=== PATIENT | male | born 1945 | race Caucasian/White ===

== ENCOUNTER 2020-10-01 17:39 | Inpatient (IN) | payer MEDICARE, OTHER ==
[~2020-10-01] VITALS: Ht 172.7 cm; Wt 56.7 kg
[2020-10-01 18:12] LABS: Hematocrit 21.2 % (37.0-53.0); Hemoglobin 7.3 g/dL (13.5-17.5); Mean Corpuscular HGB 30.2 pg (26.0-34.0); Mean Corpuscular HGB Conc 34.4 g/dL (31.5-36.5); Mean Corpuscular Volume 88 fL (80-100); Mean Platelet Volume 10.4 fL (9.1-12.4); NRBC ABSOLUTE 0.02 K/mm3 (0.00-0.02); NRBC Auto 0.4 /100 WBC (0.0-0.2); Platelet Count 160 K/mm3 (150-400); RDW Coefficient Variation 28.8 % (11.7-14.2); RDW Standard Deviation 86.3 fL (35.1-46.3); Red Blood Cell Count 2.42 M/mm3 (4.30-5.90)
[2020-10-01 18:35] LABS: BAND PERCENT MAN 1 % (0-8); BASOPHILS PERCENT MAN 0 % (0-2); EOSINOPHILS PERCENT MAN 0 % (0-6); LYMPHOCYTES % ATYPICAL MANUAL 2 % (0-0); LYMPHOCYTES ABSOLUTE MAN 0.91 K/mm3 (0.84-5.20); LYMPHOCYTES PERCENT MAN 16 % (21-46); MONOCYTES ABSOLUTE MAN 0.15 K/mm3 (0.16-1.47); MONOCYTES PERCENT MAN 3 % (4-13); NEUTROPHILS ABSOLUTE MAN 4.02 K/mm3 (1.96-9.15); SEG NEUTROPHILS PERCENT MAN 78 % (41-73); TOTAL CELLS COUNTED 100
[2020-10-01 19:14] LABS: Source, Urine Catheter
[2020-10-01 19:19] LABS: Albumin, Blood 3.2 g/dL (3.4-5.0); Albumin/Globulin Ratio 0.9 (0.8-1.8); Bilirubin, Total 1.4 mg/dL (0.1-1.0); Bun/Creatinine Ratio 15.4 (12.0-20.0); Creatinine, Blood 1.3 mg/dL (0.60-1.20); Globulin, Blood 3.5 g/dL (2.2-4.0); Potassium, Blood 2.8 mmol/L (3.5-5.5); Total Protein, Blood 6.7 g/dL (6.4-8.2)
[2020-10-01 19:22] LABS: Appearance, Urine Clear (Clear); Blood, Urine 5+ (Neg); Color, Urine Amber (P-Yellow); Glucose Qualitative, Urine Neg (Neg); Ketones, Urine 1+ (Neg); Leukocyte Esterase, Urine 1+ (Neg); Nitrite, Urine Neg (Neg); Protein, Urine 3+ (Neg); Specific Gravity, Urine 1.015 (1.003-1.022); Urobilinogen, Urine 2+ (Normal)
[2020-10-01 19:50] LABS: Bilirubin, Urine 1+ (Neg)
[2020-10-01 19:56] LABS: Bacteria Mod /hpf; Mucus Light (0-Heavy); Squamous Epithelial Cells Rare /hpf (Few)
[2020-10-01 19:57] LABS: Amorphous Light (0-Heavy); Granular Casts 0-2 /lpf (0); Hyaline Casts 0-2 /lpf (0-2)
[2020-10-01 20:46] LABS: U Amphetamine Screen Not Detected; U Barbituate Screen Not Detected; U Benzodiazapine Screen Not Detected; U Buprenorphine Screen Not Detected; U Cannabinoids Screen Not Detected; U Cocaine Screen Not Detected; U Methadone Screen Not Detected; U Methamphetamine Screen Not Detected; U Opiates Screen Not Detected; U Oxycodone Screen Not Detected; U Phencyclidine Screen Not Detected; U Propoxyphene Screen Not Detected
[2020-10-01 21:18] LABS: Ethanol (Alcohol), Blood, Med <3 mg/dL; Ferritin, Serum 760 ng/mL (26-388); Iron Serum 22 ug/dL (65-175); Percent Saturation 10.8 % (20.0-50.0); Salicylate 4.5 mg/dL (2.8-20.0); Thyroid Stimulating Hormone 0.966 uIU/mL (0.360-4.800); Total Iron Binding Capacity 203 ug/dL (250-450)
[2020-10-01 21:23] LABS: Acetaminophen, Random <2.0 ug/mL (10.0-30.0)
[2020-10-01 23:39] LABS: Hematocrit 19.3 % (37.0-53.0); Hemoglobin 6.5 g/dL (13.5-17.5)
[2020-10-01 23:53] LABS: Anion Gap 6 mmol/L (6-16); Blood Urea Nitrogen 19 mg/dL (8-24); Bun/Creatinine Ratio 16.1 (12.0-20.0); CO2, Blood 26 mmol/L (21-32); Calcium, Blood 7.2 mg/dL (8.5-10.1); Chloride, Blood 102 mmol/L (98-108); Creatinine, Blood 1.18 mg/dL (0.60-1.20); Glomerular Filtration Rate >60 (60-); Glucose, Blood 106 mg/dL (70-99); Potassium, Blood 3.1 mmol/L (3.5-5.5); Sodium, Blood 134 mmol/L (136-145)
[2020-10-02 05:59] LABS: Hematocrit 21.7 % (37.0-53.0); Hemoglobin 7.5 g/dL (13.5-17.5); Mean Corpuscular HGB Conc 34.6 g/dL (31.5-36.5); Mean Corpuscular Volume 87 fL (80-100); NRBC ABSOLUTE 0.02 K/mm3 (0.00-0.02); NRBC Auto 0.8 /100 WBC (0.0-0.2); Platelet Count 128 K/mm3 (150-400); RDW Coefficient Variation 26.1 % (11.7-14.2); RDW Standard Deviation 83.3 fL (35.1-46.3); White Blood Cell Count 2.58 K/mm3 (4.00-11.30)
--- NOTE | 2020-10-02 06:05 | NUR ---
PT WAS ADMITTED TO ROOM 350 THIS SHIFT, COVERED IN FECES, CONFUSED, WILL ANGER EASY AND TRY TO HIT STAFF AT TIMES. CONTINUALLY PULLING OFF TELE MONITOR, ORDER RECIEVED TO D/C TELE. HEMOGLOBIN 6.5, 1 UNIT OF BLOOD RECIEVED PER DR KO. AWAITING NEW LAB RESULTS. BED ALARM ON FOR SAFETY. PICTURES IN CHART OF SKIN TEAR AND ABRASIONS.
[2020-10-02 06:19] LABS: Anion Gap 5 mmol/L (6-16); Blood Urea Nitrogen 18 mg/dL (8-24); Bun/Creatinine Ratio 16.2 (12.0-20.0); CO2, Blood 25 mmol/L (21-32); Calcium, Blood 7.1 mg/dL (8.5-10.1); Chloride, Blood 105 mmol/L (98-108); Creatinine, Blood 1.11 mg/dL (0.60-1.20); Glomerular Filtration Rate >60 (60-); Glucose, Blood 94 mg/dL (70-99); Potassium, Blood 3.2 mmol/L (3.5-5.5); Sodium, Blood 135 mmol/L (136-145)
[2020-10-02 06:25] LABS: BAND PERCENT MAN 1 % (0-8); BASOPHILS PERCENT MAN 0 % (0-2); EOSINOPHILS PERCENT MAN 0 % (0-6); LYMPHOCYTES ABSOLUTE MAN 0.69 K/mm3 (0.84-5.20); LYMPHOCYTES PERCENT MAN 27 % (21-46); MONOCYTES ABSOLUTE MAN 0.25 K/mm3 (0.16-1.47); MONOCYTES PERCENT MAN 10 % (4-13); NEUTROPHILS ABSOLUTE MAN 1.62 K/mm3 (1.96-9.15); SEG NEUTROPHILS PERCENT MAN 62 % (41-73); TOTAL CELLS COUNTED 100
[2020-10-02 10:59] LABS: Hematocrit 21.6 % (37.0-53.0); Hemoglobin 7.4 g/dL (13.5-17.5)
--- NOTE | 2020-10-02 16:27 | NUR ---
Shift Summary A/Ox2-3, unsure about month but knows year/president. 1P c gait/contact guard. Patient is disgruntled about being in the hospital. Has not shown any violent or combative behavior toward staff this shift. Worked with PT, tolerated well. Dressing to LFA changed today, mild SS drainage. Step son (Shmuel) in to visit. Continent to bathroom. No bowels today, stool sample still needed. No acute changes, WCTM.
[2020-10-02 16:54] LABS: Hematocrit 23.1 % (37.0-53.0); Hemoglobin 7.8 g/dL (13.5-17.5)
--- NOTE | 2020-10-02 22:20 | NUR ---
ASSUMED CARE RECEIVED REPORT FROM YUNIEL PEPPER. PT IN BED RESTING COMFORTABLE. LICENSED MARINE ENGINEER IS IN ROOM DRAWING BLOOD. WILL CONTINUE TO MONITOR PATIENT.
[2020-10-02 22:35] LABS: Hematocrit 22.5 % (37.0-53.0); Hemoglobin 7.9 g/dL (13.5-17.5)
--- NOTE | 2020-10-03 04:49 | NUR ---
SHIFT SUMMARY PT AOX3. HE HAS BEEN IMPULSIVE, TRIED TO GOT UP IN BED MULTIPLE TIMES W/O USING CALL LIGHT. BED ALARM ON. PT DENIES PAIN, N/V. HE HAS BEEN ACTING PLEASANT DURING MY SHIFT EXCEPT WHEN LAB CAME IN TO DRAW HIS BLOOD THIS MORNING. HE WAS VERY UPSET BUT WAS COOPERATIVE WITH CARE. TOLERATING PO INTAKE. DENIES NAUSEA AND VOMITING. 1 BM THIS MORNING. CALL LIGHT WITHIN REACH. WILL PROVIDE REPORT TO ONCOMING NURSE.
[2020-10-03 05:41] LABS: Hematocrit 22.2 % (37.0-53.0); Hemoglobin 7.4 g/dL (13.5-17.5); Mean Corpuscular HGB 29.6 pg (26.0-34.0); Mean Corpuscular HGB Conc 33.3 g/dL (31.5-36.5); Mean Corpuscular Volume 89 fL (80-100); NRBC ABSOLUTE 0.03 K/mm3 (0.00-0.02); NRBC Auto 1.4 /100 WBC (0.0-0.2); Platelet Count 108 K/mm3 (150-400); RDW Standard Deviation 87.8 fL (35.1-46.3)
[2020-10-03 05:56] LABS: Anion Gap 8 mmol/L (6-16); Blood Urea Nitrogen 13 mg/dL (8-24); Bun/Creatinine Ratio 13.1 (12.0-20.0); CO2, Blood 22 mmol/L (21-32); Calcium, Blood 6.8 mg/dL (8.5-10.1); Chloride, Blood 104 mmol/L (98-108); Creatinine, Blood 0.99 mg/dL (0.60-1.20); Glomerular Filtration Rate >60 (60-); Glucose, Blood 61 mg/dL (70-99); Potassium, Blood 3.4 mmol/L (3.5-5.5); Sodium, Blood 134 mmol/L (136-145)
[2020-10-03 06:02] LABS: BAND PERCENT MAN 11 % (0-8); BASOPHILS ABSOLUTE MAN 0.08 K/mm3 (0.00-0.23); BASOPHILS PERCENT MAN 4 % (0-2); EOSINOPHILS ABSOLUTE MAN 0.08 K/mm3 (0.00-0.68); EOSINOPHILS PERCENT MAN 4 % (0-6); LYMPHOCYTES ABSOLUTE MAN 0.46 K/mm3 (0.84-5.20); LYMPHOCYTES PERCENT MAN 22 % (21-46); METAMYELOCYTE ABSOLUTE MAN 0.02 K/mm3 (0.00-0.00); METAMYELOCYTE PERCENT MAN 1 % (0-0); MONOCYTES ABSOLUTE MAN 0.25 K/mm3 (0.16-1.47); MONOCYTES PERCENT MAN 12 % (4-13); NEUTROPHILS ABSOLUTE MAN 1.19 K/mm3 (1.96-9.15); SEG NEUTROPHILS PERCENT MAN 46 % (41-73); TOTAL CELLS COUNTED 100
[2020-10-03 13:10] LABS: Stool Occult Blood Guaiac 1 Neg (Neg)
--- NOTE | 2020-10-03 17:34 | NUR ---
PT IS ALERT ORIENTED TO SELF, PLACE AND FAMILY, THE PT APPEARS TO BE BREATHING EASILY ON RA AT THIS TIME, THE PT IS UP WITH MINIMAL ASSIST, STEADY ON HIS FEET TO THE BATHROOM, THE PT IS SLOW TO RESPOND TO SOME QUESTIONS AND APPEARS TO BE AGITATED WHEN HE ANSWERS, THE PT DENIED ANY PAIN, CALL LIGHT IN REACH, WILL CONTINUE TO MONITOR AND ASSESS FOR CHANGES.
--- NOTE | 2020-10-04 04:49 | NUR ---
SUMMARY: A/OX3 BUT CONFUSED TO EVENT/DATE. HE IS FRUSTRATED RE: HOSPITAL ADMISSION AND REQ'S REMINDERS PERTAINING TO NEED AND TX BEING RECIEVED. HE CAN BE CONTANKEROUS AND AGGITATED AT TIMES W/SUPPORT PROVIDED. NS INFUSING AND IV ABX BEING RECIEVED. PT DENIED PAIN AND ALL OTHER COMPLAINTS. PT IMPULLSIVE OOB W/BED ALARM ON AND SBA PROVIDED TO TOILET TO HELP W/LINES. MRI SCHEDULED THIS AM, PT AWARE. SCATTERED BRUISES OBSERVED AND DX REMAINS INTACT TO L.FA SKIN TEAR. HE CONT'S TO HAVE A POOR APPETITE W/PO INTAKE ENCOURAGED. NO ACUTE CHANGES, VSS/AFEBRILE. WCTM AND REPORT TO DAY RN.
[2020-10-04 04:53] LABS: BASOPHILS ABSOLUTE AUTO 0.01 K/mm3 (0.00-0.23); BASOPHILS PERCENT AUTO 0 % (0-2); EOSINOPHILS ABSOLUTE AUTO 0.01 K/mm3 (0.00-0.68); EOSINOPHILS PERCENT AUTO 0 % (0-6); Hemoglobin 7.3 g/dL (13.5-17.5); Mean Corpuscular HGB 30.2 pg (26.0-34.0); Mean Corpuscular HGB Conc 34.8 g/dL (31.5-36.5); Mean Corpuscular Volume 87 fL (80-100); NRBC ABSOLUTE 0.02 K/mm3 (0.00-0.02); NRBC Auto 0.8 /100 WBC (0.0-0.2); Platelet Count 113 K/mm3 (150-400); RDW Coefficient Variation 25.9 % (11.7-14.2); RDW Standard Deviation 81.2 fL (35.1-46.3); Red Blood Cell Count 2.42 M/mm3 (4.30-5.90); White Blood Cell Count 2.61 K/mm3 (4.00-11.30)
[2020-10-04 04:56] LABS: IMMATURE GRAN ABSOLUTE AUTO 0.06 K/mm3 (0.00-0.10); IMMATURE GRAN PERCENT AUTO 2 % (0-1); LYMPHOCYTES ABSOLUTE AUTO 0.63 K/mm3 (0.84-5.20); LYMPHOCYTES PERCENT AUTO 24 % (21-46); MONOCYTES ABSOLUTE AUTO 0.72 K/mm3 (0.16-1.47); MONOCYTES PERCENT AUTO 28 % (4-13); Mean Platelet Volume 10.3 fL (9.1-12.4); NEUTROPHILS ABSOLUTE AUTO 1.18 K/mm3 (1.96-9.15); NEUTROPHILS PERCENT AUTO 45 % (41-73)
[2020-10-04 05:08] LABS: Anion Gap 9 mmol/L (6-16); Blood Urea Nitrogen 10 mg/dL (8-24); Bun/Creatinine Ratio 11.6 (12.0-20.0); CO2, Blood 21 mmol/L (21-32); Calcium, Blood 7.2 mg/dL (8.5-10.1); Chloride, Blood 103 mmol/L (98-108); Creatinine, Blood 0.86 mg/dL (0.60-1.20); Glomerular Filtration Rate >60 (60-); Glucose, Blood 85 mg/dL (70-99); Potassium, Blood 3.4 mmol/L (3.5-5.5); Sodium, Blood 133 mmol/L (136-145)
--- NOTE | 2020-10-04 06:16 | NUR ---
PT HAS BEEN IMPULSIVE OOB MULTIPLE TIMES, SETTING OFF ALARM, DESPITE REMINDERS TO CALL FOR ASSIST. HE PULLED IV OUT OF HIS ARM RESULT SO IV WAS DC'D AND NEW 20G IV WAS PLACED TO R.FA. IV SECURED W/IVF AND ABX RESTARTED. EDUCATION REINFORCED.
[2020-10-04] MEDS ORDERED: ASPI81CH PO (15:57)
[2020-10-04] MEDS ORDERED: DOXY100 PO (15:58)
[2020-10-04] MEDS ORDERED: POTA10T PO (15:58)
[2020-10-04] MEDS ORDERED: FERSU300 PO (15:59)
--- NOTE | 2020-10-04 16:36 | NUR ---
REVIEW D'C WITH STEP SON. AWARE NEEDS TO MAKE F/U APPT FOR PATIENT. GIVEN NEW PATIENT PACKET THAT THEY CAN FILL OUT OR CAN F/U AT [facility]. WOUND TO LEFT F.A. PATIENT TOOK OFF DRESSING AND WANTED TO PUT ON TAPE. BANDAID APPLIED. PER STEP SON PATIENT HAS HAD WOUND FOR YEARS. ADVISED SHOULD F/U WITH [facility]. IV D'C WITH NO SIGNS SWELLING OR BRUISING. OLD IV SITE RT FA WITH SOME SWELLING AND ADVISED SHOULD TRY TO ELEVATE TO DECREASE SWELLING. AWARE MEDS AT [facility] IN [place] AND REVIEW ALL MEDS WITH STEP SON. PATIENT STATES HE WILL NOT TAKE THEM. ANSWER ALL QUESTIONS. VERBALIZES UNDERSTANDING. RELATIVE LOOKING UP CAR INSURANCE TO GIVE TO ADMITTING. WILL LEAVE IN W/C TO E.R. SIDE.
== END 2020-10-04 16:49 | disposition home or self-care (01) | DRG 91 ==
LOC: ER 17:39 → MEDS 20:22
PROVIDERS: Emergency Medicine; Internal Medicine; ADMIT Family Medicine
PROC: 30233N1 Transfusion of Nonautologous Red Blood Cells into Peripheral Vein, Percutaneous Approach (ICD-10-PCS; principal; 2020-10-01)
DX: G92 Toxic encephalopathy (principal); E43 Unspecified severe protein-calorie malnutrition; N17.9 Acute kidney failure, unspecified; E87.1 Hypo-osmolality and hyponatremia; D61.818 Other pancytopenia; R64 Cachexia; Z68.1 Body mass index [BMI] 19.9 or less, adult; N39.0 Urinary tract infection, site not specified; N18.30 Chronic kidney disease, stage 3 unspecified; H91.90 Unspecified hearing loss, unspecified ear; D63.1 Anemia in chronic kidney disease; E87.6 Hypokalemia; F03.90 Unspecified dementia, unspecified severity, without behavioral disturbance, psychotic disturbance, mood disturbance, and anxiety; R45.1 Restlessness and agitation; F17.210 Nicotine dependence, cigarettes, uncomplicated; E86.0 Dehydration; B95.2 Enterococcus as the cause of diseases classified elsewhere; E27.8 Other specified disorders of adrenal gland; J32.0 Chronic maxillary sinusitis
CPT/HCPCS: 36415; 36430; 70450; 70551; 71045; 72125; 74177; 76700; 80048; 80053; 81001; 82140; 82272; 82330; 82550; 82607; 82728; 82746; 83540; 83550; 84443; 85014; 85018; 85025; 86850; 86900; 86901; 86920; 87040; 87077; 87086; 87186; 93005; 93010; 96365-59; 96375; 96376; 97129; 97161; 97165; 97530; 99285-25; A9270; G0103; G0378; G0480; J0290; J0696; J2060; J2916; J7030; P9016; Q9967